=== PATIENT | male | born 1990 | race Caucasian/White ===

== ENCOUNTER 2018-11-15 13:52 | Emergency (ER) | payer OTHER ==
[2018-11-15 13:58] VITALS: BP 132/79; PULSE 82; RESP 18; TEMP 98
--- NOTE | 2018-11-15 14:19 | ED ---
General Adult HPI - General Chief complaint: Extremity Injury, Upper Stated complaint: Lt hand injury Time Seen by Provider: 11/15/18 14:05 Source: patient, RN notes reviewed Mode of arrival: ambulatory Limitations: no limitations - History of Present Illness Initial comments: Patient is a 28-year-old male presented to the emergency room today with a chief complaint of an injury to left hand. He does admit that yesterday he was at the gym he was hitting a punching bag. He states that he felt a pain in the left hand. He states at a stop. He states that today's pain is more swollen time with movements to pain over the fourth and fifth metacarpals. Patient does admit that he is right-handed. He denies any other complaints or symptoms. Patient denies any recent fever, chills, shortness of breath, chest pain, back pain, abdominal pain, headaches or visual changes, or any other complaints. - Related Data Home Medications Medication Instructions Recorded Confirmed Acetaminophen Tab [Tylenol Tab] 650 mg PO Q4H PRN 11/15/18 11/15/18 Ibuprofen [Motrin Ib] 400 mg PO Q6HR PRN 11/15/18 11/15/18 Omeprazole [PriLOSEC] 40 mg PO DAILY 11/15/18 11/15/18 Allergies Allergy/AdvReac Type Severity Reaction Status Date / Time No Known Allergies Allergy Verified 11/15/18 14:27 Review of Systems ROS Statement: Those systems with pertinent positive or pertinent negative responses have been documented in the HPI. ROS Other: All systems not noted in ROS Statement are negative. Past Medical History Past Medical History: GERD/Reflux History of Any Multi-Drug Resistant Organisms: None Reported Past Surgical History: Hernia Repair Past Psychological History: No Psychological Hx Reported Smoking Status: Never smoker Past Alcohol Use History: None Reported Past Drug Use History: None Reported General Exam - General Exam Comments Initial Comments: General: The patient is awake and alert, in no distress, and does not appear acutely ill. Neck: The neck is supple Musculoskeletal: Patient does have moderate swelling to left hand. He shows limited range of motion with flexion making a fist due to pain and swelling. Cap refill is less than 2 seconds. Sensations are intact. Radial pulses 2+. Patient has bony tenderness over the fourth and fifth metacarpals. No tenderness to the left wrist, left elbow. Neurological: A&O x 3. CN II-XII intact, There are no obvious motor or sensory deficits. Coordination appears grossly intact. Speech is normal. Skin: Skin is warm and dry and no rashes or lesions are noted. Psychiatric: Normal mood and affect. Limitations: no limitations Course Vital Signs 11/15/18 13:55 Temperature 98 F Pulse Rate 82 Respiratory 18 Rate Blood Pressure 132/79 O2 Sat by Pulse 100 Oximetry Medical Decision Making - Medical Decision Making Patient's x-ray does reveal a fracture through the mid fourth metacarpal with mild displacement. Patient neurovascularly intact. Injury did happen yesterday. Patient has been splinted in an ulnar gutter splint here in emergency room. Neurovascular rechecked and intact. Patient will be discharged home to follow-up with orthopedics. Advised to call office to set up an appointment today. Advised patient to leave splint in place until follow- up appointment. Patient will be given a starter pack of Tylenol 3 here in the emergency room for pain. Patient advised to continue to ice elevate the affected area. Disposition Clinical Impression: Boxers fracture Disposition: HOME SELF-CARE Condition: Good Instructions (If sedation given, give patient instructions): Boxer Fracture (ED ) Additional Instructions: Please leave splint in place until follow-up appointment with orthopedics over the next 2 days. Please continue to ice elevate the affected areas 4 times a day for 20 minutes at a time. Please return to emergency room if any symptoms increase or worsen or for any other concerns. Is patient prescribed a controlled substance at d/c from ED?: No Referrals: Aime Muniz MD [Primary Care Provider] - 1-2 days Jorgito Cantrell MD [STAFF PHYSICIAN] - 1-2 days Time of Disposition: 14:36
[2018-11-15] MEDS ORDERED: ACET/COD 300 MG/30 MG STARTER PACK 6 TAB BTL PO STA (14:34)
--- NOTE | 2018-11-15 14:35 | XR ---
EXAMINATION TYPE: XR hand complete LT DATE OF EXAM: 11/15/2018 COMPARISON: NONE HISTORY: 28-year-old male pain and swelling after punching injury TECHNIQUE: 3 views FINDINGS: Angulated and minimally offset fracture of the mid fourth metacarpal shaft. Marked dorsal soft tissue swelling of the hand. No additional acute fracture, subluxation, or dislocation seen. IMPRESSION: Mildly angulated and minimally offset fracture of the mid fourth metacarpal shaft. Associated soft ti ssue swelling.
== END 2018-11-15 14:48 | disposition home or self-care (01) ==
LOC: EC 13:52
DX: S62.325A Displaced fracture of shaft of fourth metacarpal bone, left hand, initial encounter for closed fracture (principal); K21.9 Gastro-esophageal reflux disease without esophagitis; Z79.899 Other long term (current) drug therapy; W22.8XXA Striking against or struck by other objects, initial encounter; Y93.89 Activity, other specified; Y92.39 Other specified sports and athletic area as the place of occurrence of the external cause
CPT/HCPCS: 29125; 99283

== ENCOUNTER 2019-01-14 17:52 | Emergency (ER) | payer OTHER ==
[2019-01-14 18:05] VITALS: BP 134/80; RESP 16; TEMP 98.3
[2019-01-14] MEDS ORDERED: PENICILLIN VK 500MG STARTER 4 TAB BTL PO STA (18:16)
[2019-01-14] MEDS ORDERED: IBUPROFEN 600 MG STARTER PACK 4 TAB BTL PO STA (18:16)
[2019-01-14] MEDS ORDERED: ACET/COD 300 MG/30 MG STARTER PACK 6 TAB BTL PO STA (18:16)
--- NOTE | 2019-01-14 18:25 | ED ---
General Adult HPI - General Chief complaint: Dental/Oral Stated complaint: Tooth Pain Time Seen by Provider: 01/14/19 18:06 Source: patient, RN notes reviewed, old records reviewed Mode of arrival: ambulatory Limitations: no limitations - History of Present Illness Initial comments: 28-year-old male presents today with complaints of left lower dental pain. Symptoms started after he try cleanest toothpick to toothache. He states he felt like he broke part of the tooth off. He reports he's had no fevers or chills, trismus. He denies any drainage around the tooth. Patient states that he otherwise is well. He does not see a dentist. - Related Data Home Medications Medication Instructions Recorded Confirmed Omeprazole [PriLOSEC] 40 mg PO DAILY 11/15/18 11/15/18 Previous Rx's Medication Instructions Recorded Ibuprofen 600 mg PO QID #20 tablet 01/14/19 Penicillin V Potassium [Pen Vee K] 500 mg PO QID #40 tablet 01/14/19 Allergies Allergy/AdvReac Type Severity Reaction Status Date / Time No Known Allergies Allergy Verified 01/14/19 18:05 Review of Systems ROS Statement: Those systems with pertinent positive or pertinent negative responses have been documented in the HPI. ROS Other: All systems not noted in ROS Statement are negative. Past Medical History Past Medical History: GERD/Reflux History of Any Multi-Drug Resistant Organisms: None Reported Past Surgical History: Hernia Repair Past Psychological History: No Psychological Hx Reported Smoking Status: Never smoker Past Alcohol Use History: None Reported Past Drug Use History: None Reported General Exam - General Exam Comments Initial Comments: Well-appearing 28-year-old male. Alert and oriented 3. No distress. Limitations: no limitations General appearance: alert, in no apparent distress Head exam: Present: atraumatic, normocephalic, normal inspection Eye exam: Present: normal appearance, PERRL, EOMI. Absent: scleral icterus, conjunctival injection, periorbital swelling ENT exam: Present: normal exam, mucous membranes moist, other (Patient has evidence of fractured tooth 20. Evidence of surrounding dental caries and gingival inflammation. No palpable abscess at this time.) Neck exam: Present: normal inspection. Absent: tenderness, meningismus, lymphadenopathy Respiratory exam: Present: normal lung sounds bilaterally. Absent: respiratory distress, wheezes, rales, rhonchi, stridor Cardiovascular Exam: Present: regular rate, normal rhythm, normal heart sounds. Absent: systolic murmur, diastolic murmur, rubs, gallop, clicks GI/Abdominal exam: Present: soft, normal bowel sounds. Absent: distended, tenderness, guarding, rebound, rigid Extremities exam: Present: normal inspection, full ROM, normal capillary refill. Absent: tenderness, pedal edema, joint swelling, calf tenderness Back exam: Present: normal inspection Neurological exam: Present: alert, oriented X3, CN II-XII intact Psychiatric exam: Present: normal affect, normal mood Skin exam: Present: warm, dry, intact, normal color. Absent: rash Course Vital Signs 01/14/19 18:03 Temperature 98.3 F Pulse Rate 67 Respiratory 16 Rate Blood Pressure 134/80 O2 Sat by Pulse 98 Oximetry Medical Decision Making - Medical Decision Making Patient is a 28-year-old male who complains of left sided dental pain symptoms started 2 days ago after cleaning his tooth he broke the tooth with a toothpick. Patient complains of increased swelling and pain today. Patient was started on Pen-Vee K, Motrin and given a Tylenol 3 starter pack and ED. I discussed the Patient is follow-up with dental clinic and will write the Patient for prescription for penicillin. Did offer to do a dental block however Patient refused. Disposition Clinical Impression: Pain, dental Disposition: HOME SELF-CARE Condition: Good Instructions (If sedation given, give patient instructions): Toothache (ED) Additional Instructions: [facility] [id number] [place] [address] [phone] (existing clients only) For new clients: [phone] 1st consult: $50 (includes Xrays) Usually 30% less then private dentist for visits after. [employer] Have to pay $50 for Xrays anmd rest is covered. [phone] Prescriptions: Ibuprofen 600 mg PO QID #20 tablet Penicillin V Potassium [Pen Vee K] 500 mg PO QID #40 tablet Is patient prescribed a controlled substance at d/c from ED?: No Referrals: Aime Muniz MD [Primary Care Provider] - 1-2 days Time of Disposition: 18:23
[2019-01-14 18:29] VITALS: PULSE 62
== END 2019-01-14 18:30 | disposition home or self-care (01) ==
LOC: EC 17:52
DX: K02.9 Dental caries, unspecified (principal); S02.5XXA Fracture of tooth (traumatic), initial encounter for closed fracture; K21.9 Gastro-esophageal reflux disease without esophagitis; Z79.899 Other long term (current) drug therapy; Z53.20 Procedure and treatment not carried out because of patient's decision for unspecified reasons; X58.XXXA Exposure to other specified factors, initial encounter
CPT/HCPCS: 99283